=== PATIENT | female | born 1990 | race American Indian/Alaskan Native ===

== ENCOUNTER 2017-06-21 13:18 | Emergency (ER) | payer SELFPAY ==
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
[2017-06-21 18:40] LABS: ABS Basophils 0.2 10^3/ul (0-0.2); ABS Eosinophils 0.1 10^3/ul (0-0.6); ABS Lymphocytes 1.8 10^3/ul (1.0-4.8); ABS Neutrophils 5.5 10^3/ul (1.5-7.7); ABS Nucleated RBC 0 10^3/ul; Eosinophil % 0.6 % (0-6); Hematocrit 39 % (35-47); Hemoglobin 13.1 g/dl (12.0-16.0); Lymphocyte % 21.6 % (25-47); Mean Corpuscular HGB Conc 34 g/dl (31-36); Mean Corpuscular Hemoglobin 31 pg (27-31); Mean Corpuscular Volume 93 fL (80-97); Mean Platelet Volume 9 um3 (7.4-10.4); Nucleated Red Blood Cells % 0.1; Platelet Count 247 10^3/ul (150-450); Red Blood Count 4.22 10^6/ul (4.0-5.4); Red Cell Distribution Width 13 % (10.5-15); White Blood Count 8.5 10^3/ul (3.5-10.8)
[2017-06-21 19:09] LABS: EGFR Non-African American 95.6 (>60)
== END 2017-06-21 15:17 | disposition home or self-care (01) ==
LOC: UCEAST 13:18
DX: Z77.21 Contact with and (suspected) exposure to potentially hazardous body fluids (principal); Z11.4 Encounter for screening for human immunodeficiency virus [HIV]; Z32.02 Encounter for pregnancy test, result negative
CPT/HCPCS: 36415; 80053; 84702; 85025; 86703; 86706; 86803; 87340; 99211; G0463

== ENCOUNTER 2018-05-19 13:28 | Emergency (ER) | payer BC ==
--- NOTE | 2018-05-19 13:31 | UC ---
Lower Extremity/Ankle HPI - HPI Summary HPI Summary: 27 yo female presents with LEFT ankle pain. She tells me that last night while at a [employer] she slipped and inverted her left ankle. Today is having continued pain. She is ambulatory without assistance. Denies numbness or tingling. - History of Current Complaint Stated Complaint: ANKLE INJURY Time Seen by Provider: 05/19/18 13:30 Hx Obtained From: Patient Hx Last Menstrual Period: 3weeks Onset/Duration: Sudden Onset Severity Initially: Mild Severity Currently: Mild Pain Intensity: 3 Pain Scale Used: 0-10 Numeric Aggravating Factor(s): Standing, Ambulation Alleviating Factor(s): Rest Able to Bear Weight: Yes - Allergies/Home Medications Allergies/Adverse Reactions: Allergies Allergy/AdvReac Type Severity Reaction Status Date / Time No Known Allergies Allergy Verified 05/19/18 13:39 Home Medications: Home Medications Control 1 tab PO DAILY 05/19/18 [History Confirmed 05/19/18] PMH/Surg Hx/FS Hx/Imm Hx - Additional Past Medical History Additional PMH: None - Surgical History Surgical History: None - Family History Known Family History: Positive: None - Social History Occupation: Employed Full-time Lives: With Family Alcohol Use: Occasionally Substance Use Type: None Smoking Status (MU): Never Smoked Tobacco - Immunization History Most Recent Influenza Vaccination: 2017 Most Recent Tetanus Shot: UTD Review of Systems All Other Systems Reviewed And Are Negative: Yes Constitutional: Positive: Negative Skin: Positive: Negative Respiratory: Positive: Negative Cardiovascular: Positive: Negative Neurovascular: Positive: Negative Musculoskeletal: Positive: Other: - Left ankle pain Neurological: Positive: Negative Psychological: Positive: Negative Physical Exam - Summary Physical Exam Summary: GENERAL: NAD. WDWN. No pain distress. SKIN: No rashes, sores, lesions, or open wounds. CHEST: No accessory muscle use. Breathing comfortably and in no distress. CV: Pulses intact PT and DP. Cap refill <2seconds MSK: LEFT ANKLE: Mild TTP at ATFL. Moderate edema overlying ATFL. FROM. Strength 5/5. No obvious bony deformities. Negative talar tilt. No increased laxity. NEURO: Alert. Sensations intact and symmetric B/L LEs PSYCH: Age appropriate behavior. Triage Information Reviewed: Yes Vital Signs: Vital Signs: Temp Pulse Resp BP Pulse Ox 97.7 F 90 18 112/70 97 05/19/18 13:34 05/19/18 13:34 05/19/18 13:34 05/19/18 13:34 05/19/18 13:34 Vital Signs Reviewed: Yes Lower Extremity Course/Dx - Course Course Of Treatment: XR: REPORT AND IMPRESSION: #. Lateral soft tissue swelling without fracture or malalignment. Preserved joint. spaces. Suspect ankle sprain. SHEREEN wrap, gel ankle splint, and crutches given. Advised to RICE and f/u with Ortho if symptoms persist. - Differential Dx/Diagnosis Provider Diagnosis: Left ankle sprain Discharge - Sign-Out/Discharge Documenting (check all that apply): Patient Departure All imaging exams completed and their final reports reviewed: Yes - Discharge Plan Condition: Stable Disposition: HOME Patient Education Materials: Ankle Sprain (ED) Forms: *Work Release Referrals: No Primary Care Phys,NOPCP [Primary Care Provider] - Goldy Alvarez MD [Medical Doctor] - If Needed Additional Instructions: If you develop a fever, shortness of breath, chest pain, new or worsening symptoms - please call your PCP or go to the ED. 1) Rest, Ice, and elevate your ankle as much as possible 2) Use the gel splint for added support and pain relief 3) If your symptoms do not improve within 7-10 days, please schedule a follow up appointment with Orthopedics - Billing Disposition and Condition Condition: STABLE Disposition: Home
== END 2018-05-19 14:06 | disposition home or self-care (01) ==
LOC: UCEAST 13:28
DX: S93.402A Sprain of unspecified ligament of left ankle, initial encounter (principal); W18.40XA Slipping, tripping and stumbling without falling, unspecified, initial encounter; Y92.9 Unspecified place or not applicable
CPT/HCPCS: 99213; G0463

== ENCOUNTER 2019-08-29 09:23 | Day surgery (SDC) | payer BC ==
[~2019-08-29 09:23] MED LIST: Buffered Lidocaine 1% SYRIN* 1 ML/SYRINGE INTRADERM ONE; Lactated Ringers 1000 ML Bag* 1,000 ML IV SCH
[2019-08-29] MEDS ORDERED: HYDROmorphone INJ1* 1 MG/ML SYRINGE IV PRN (09:49)
[2019-08-29] MEDS ORDERED: Naloxone* 0.4 MG/ML 1 ML VIAL IV PRN (09:49)
[2019-08-29] MEDS ORDERED: Midazolam* 1 MG/ML 2 ML VIAL (2 MG) ONE (10:06)
[2019-08-29] MEDS ORDERED: fentaNYL* 50 MCG/ML 2 ML VIAL (100 MCG VIAL) ONE (10:06)
[2019-08-29] MEDS ORDERED: Ondansetron INJ* 2 MG/ML VIAL ONE (10:16)
[2019-08-29] MEDS ORDERED: Dexamethasone IV* 4 MG/ML 1 ML (4 MG) ONE (10:16)
[2019-08-29] MEDS ORDERED: Propofol* 10 MG/ML 20 ML BTL ONE (10:16)
[2019-08-29] MEDS ORDERED: Lidocaine 2% PF * 5 ML VIAL ONE (10:16)
[2019-08-29] MEDS ORDERED: Acetaminophen IV 1GM/100ML * 100 ML ONE (10:18)
[2019-08-29] MEDS ORDERED: Ketorolac INJ* 30 MG/ML 1 ML VIAL ONE (10:18)
[2019-08-29 10:43] VITALS: BP 130/77
--- NOTE | 2019-08-29 10:55 | OP ---
OPERATIVE REPORT: DATE OF OPERATION: 08/29/19 DATE OF : 88 SURGEON: Luisito Godfrey MD. [employer]OR: None. ANESTHESIA: General. PRE-OP DIAGNOSIS: Chronic tonsillitis. POST-OP DIAGNOSIS: Chronic tonsillitis. OPERATIVE PROCEDURE: Tonsillectomy. ESTIMATED BLOOD LOSS: Negligible. SPECIMENS: Right and left tonsils to Pathology. DESCRIPTION OF PROCEDURE: This is a 29-year-old woman with chronic tonsillitis. She was brought to [facility] operating room, general anesthesia was induced, and the patient was orally intubated. The table w as then turned 90 degrees. The patient draped, head wrap applied, and a time-out was performed. A M [place] mouth gag was used to facilitate exposure of the oropharynx. It was suspended from a Sweet garima d. The right tonsil was grasped with straight Allis forceps, retracted medially, and dissected free o f its fossa with a coblation device at a setting of 7 and 3 with no bleeding. The left tonsil was re moved in an identical fashion, again utilizing the coblation device and again with no bleeding. Once the tonsils were removed, the superior and inferior pole regions were prophylactically cauterized. The stomach contents were then evacuated with an orogastric tube. The mouth gag was let down for a p eriod of a minute. It was then opened again, there was no evidence of active bleeding. So, the pedro ent was returned to the care of the anesthesiologist and extubated. [id number]/[facility] #: [id number]
== END 2019-08-29 11:14 | disposition home or self-care (01) ==
LOC: OR 09:23
PROVIDERS: ATTEND Otolaryngology
DX: J35.01 Chronic tonsillitis (principal)
CPT/HCPCS: 81025; 88304; J1100; J1885; J2250; J2405; J2704; J3010